=== PATIENT | male | born 1990 | race Caucasian/White ===

== ENCOUNTER 2018-10-23 10:11 | Emergency (ER) | payer OTHER, BC ==
--- NOTE | 2018-10-23 11:05 | EDM.PDOC ---
<Chelsea Carlisle - Last Filed: 10/23/18 11:26> ED HPI GENERAL MEDICAL PROBLEM - General Chief Complaint: Laceration Stated Complaint: CUT FINGER AT WORK Time Seen by Provider: 10/23/18 10:51 Source of Information: Reports: Patient History Limitations: Reports: No Limitations - History of Present Illness INITIAL COMMENTS - FREE TEXT/NARRATIVE: Patient is a 27 year old male with past history of Hodgkin lymphoma in remission who presents for laceration of the base of the left index finger. 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 He reported that his hand was also pinned during the accident, but it happened very quickly. The date of the patient's last tetanus is unknown. 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 [No Known Home Meds] 10/23/18 [History] Past Medical History Cardiovascular History: Reports: None Respiratory History: Reports: None Gastrointestinal History: Reports: None Genitourinary History: Reports: None Neurological History: Reports: None Psychiatric History: Reports: None Endocrine/Metabolic History: Reports: None Hematologic History: Reports: Other (See Below) Other Hematologic History: Blood clots in right bicep. Previous blood thinner use. Immunologic History: Reports: None Oncologic (Cancer) History: Reports: Hodgkin's Lymphoma (In [id number] Currently in remission) Dermatologic History: Reports: None - Infectious Disease History Infectious Disease History: Reports: None - Past Surgical History Head Surgeries/Procedures: Reports: None HEENT Surgical History: Reports: Oral Surgery Musculoskeletal Surgical History: Reports: Other (See Below) Other Musculoskeletal Surgeries/Procedures:: Bone Marrow biopsies. Oncologic Surgical History: Reports: Bone Marrow Aspiration Other Oncologic Surgeries/Procedures: Pt had surgery on his upper chest to try to get tissue from behind the breast plate. Had a few biopsies, had surgery to insert and remove port, and had complications with the port that resulted in another surgery. Social & Family History - Tobacco Use Smoking Status *Q: Current Every Day Smoker Years of Tobacco use: 10 Packs/Tins Daily: 0.5 - Caffeine Use Caffeine Use: Reports: Energy Drinks - Recreational Drug Use Recreational Drug Type: Reports: Marijuana/Hashish ED ROS GENERAL - Review of Systems Review Of Systems: See Below Constitutional: Reports: No Symptoms HEENT: Reports: No Symptoms Respiratory: Reports: No Symptoms Cardiovascular: Reports: No Symptoms Endocrine: Reports: No Symptoms GI/Abdominal: Reports: No Symptoms : Reports: No Symptoms Musculoskeletal: Reports: No Symptoms Skin: Reports: No Symptoms Neurological: Reports: No Symptoms Psychiatric: Reports: No Symptoms Hematologic/Lymphatic: Reports: No Symptoms Immunologic: Reports: No Symptoms ED EXAM, SKIN/RASH Exam: See Below Exam Limited By: No Limitations General Appearance: Alert, WD/WN, No Apparent Distress Nose: Normal Inspection Throat/Mouth: Normal Voice, No Airway Compromise Head: Atraumatic Neck: Normal Inspection Respiratory/Chest: No Respiratory Distress Neurological: Alert, Oriented Psychiatric: Normal Affect, Normal Mood Skin: Warm, Dry, Normal Color, No Rash, Wound/Incision (1 cm laceration to the base of the left index finger with bleeding. Flexion of the finger intact with good strength. ) Location, Skin: Upper Extremity, Left Course - Vital Signs Text/Narrative:: Patient will receive a tetanus vaccine, as last tetanus is unknown. Xray ordered due to history of possible pinning of the hand. 10 mL of 1% Lidocaine ordered for suturing of the laceration. Last Recorded V/S: Last Vital Signs Temp 97 F 10/23/18 10:35 Pulse 71 10/23/18 10:35 Resp 16 10/23/18 10:35 BP 171/127 H 10/23/18 10:35 Pulse Ox 98 10/23/18 10:35 - Orders/Labs/Meds Orders: Active Orders 24 hr Category Date Time Status Vaccines to be Administered [RC] PER UNIT ROUTINE Care 10/23/18 11:10 Active Fingers Second Digit Lt F1 [CR] Stat Exams 10/23/18 11:19 Taken Meds: Medications Discontinued Medications Generic Name Dose Route Start Last Admin Trade Name Freq PRN Reason Stop Dose Admin Diphtheria/Tetanus/Acell Pertussis 0.5 ml 10/23/18 11:09 Adacel IM 10/23/18 11:10 .ONCE ONE Lidocaine HCl 10 ml 10/23/18 11:10 Xylocaine 1% INJECT 10/23/18 11:11 ONETIME ONE Tetanus/Diphtheria Toxoids Confirm 10/23/18 11:54 Tenivac Administered 10/23/18 11:55 Dose 0.5 ml .ROUTE .STK-MED ONE Departure - Departure Disposition: Home, Self-Care 01 Clinical Impression: Laceration of left index finger Qualifiers: Encounter type: initial encounter Damage to nail status: without damage Foreign body presence: without foreign body Qualified Code(s): S61.211A - Laceration without foreign body of left index finger without damage to nail, initial encounter - Discharge Information Referrals: PCP,None [Primary Care Provider] - Raymond Rice, AUGUSTUS [Physician Bulb Grower] - 1 Week Forms: ED Department Discharge Additional Instructions: Soak your finger in warm soapy water 2 times per day and apply antibiotics after. Have the sutures removed in 1 week. Please return if you see any signs of infection such as redness, swelling, pain, or drainage. You may need an oral antibiotic if you see these signs. - My Orders Last 24 Hours: My Active Orders 10/23/18 11:19 Fingers Second Digit Lt F1 [CR] Stat - Assessment/Plan Last 24 Hours: My Active Orders 10/23/18 11:19 Fingers Second Digit Lt F1 [CR] Stat <Bridger Brown - Last Filed: 10/23/18 12:11> ED ROS GENERAL - Review of Systems Review Of Systems: See Below ED EXAM, SKIN/RASH Exam: See Below ED SKIN PROCEDURES - Laceration/Wound Repair Left Digit - 2nd (Index) Appearance: Superficial, Irregular Distal NVT: Neuro & Vascular Intact, No Tendon Injury Anesthetic Type: Digital Local Anesthesia - Lidocaine (Xylocaine): 1% Plain Skin Prep: Providone-Iodine (Betadine) Exploration/Debridement/Repair: Wound Explored, In a Bloodless Field, Explored to Base Closed with: Sutures Lac/Wound length In cm: 1 Suture Size: 4-0 # of Sutures: 3 Suture Type: Nylon, Interrupted, Simple Tetanus Status Addressed: Yes Complications: No Course - Re-Assessments/Exams Free Text/Narrative Re-Assessment/Exam: 10/23/18 12:06 I examined the patient myself and I agree with Carmina's assessment and plan. I did an x-ray and there was no fracture. I updated his tetanus. I sutured the laceration. Departure - Departure Time of Disposition: 12:10 Condition: Good - Discharge Information *PRESCRIPTION DRUG MONITORING PROGRAM REVIEWED*: No *COPY OF PRESCRIPTION DRUG MONITORING REPORT IN PATIENT KARL: No
[2018-10-23] MEDS ORDERED: Diphtheria,Pertussis(Acell),Tetanus Vaccine 0.5 ML SDV IM ONE (11:09)
[2018-10-23] MEDS ORDERED: Lidocaine 1% 10 ML MDV INJECT ONE (11:10)
[2018-10-23] MEDS ORDERED: Diphtheria/Tetanus Toxoids,Adult (Td) 0.5 ML Syringe ONE (11:54)
--- NOTE | 2018-10-23 14:12 | CR ---
Left 2nd finger: Four views of the left 2nd finger were obtained. Comparison: No previous study. Joint spaces are preserved. No fracture, dislocation or other bony abnormality is seen. Soft tissue injury is noted within the base of the finger. Impression: 1. No bony abnormality is seen. Soft tissue injury. Diagnostic code #2
== END 2018-10-23 12:37 | disposition home or self-care (01) ==
LOC: JD.ED 10:11
DX: S61.211A Laceration without foreign body of left index finger without damage to nail, initial encounter (principal); F17.210 Nicotine dependence, cigarettes, uncomplicated; W27.8XXA Contact with other nonpowered hand tool, initial encounter; Y99.0 Civilian activity done for income or pay
CPT/HCPCS: 12001; 73140; 90471; 90715; 99283; J2001